=== PATIENT | male | born 1970 | race American Indian/Alaskan Native ===

== ENCOUNTER 2018-05-06 11:02 | Emergency (ER) | payer OTHER ==
[2018-05-06 11:17] VITALS: BP 181/88
[2018-05-06] MEDS ORDERED: BABY ASPIRIN PO ONE (11:17)
--- NOTE | 2018-05-06 11:26 | Emergency Department Report ---
ED Chest Pain HPI - General Chief Complaint: Chest Pain Stated Complaint: CHEST PAIN Time Seen by Provider: 05/06/18 11:14 Source: EMS Mode of arrival: Ambulatory Limitations: No Limitations - History of Present Illness Initial Comments: Mr. Carter is a 48 yo male with hx of schizophrenia who presents with chest pain sudden onset while at right. Pain located at the mid axillary region. Sharp moderately severe, no radiation. No dyspnea. +dry cough. NO injury but the pain occurred at the job. He shovels loads at a recycling plant. NO family hx of heart dz. In 2010, he was treated for chest pain and irregular heart beat at [facility] [place] after using cocaine. +tobacco use, no use of recreational drugs for the past several years Medications: Kailey Shen MD Complaint: chest pain -: Sudden, minutes(s) (30-45 minutes), This afternoon Onset: during exertion Pain Radiation: none Severity scale (0 -10): 8 Quality: aching, sharp Consistency: constant Improves With: nothing - Related Data Previous Rx's Medication Instructions Recorded Last Taken Type Doxycycline Hyclate [Vibramycin] 100 mg PO BID 7 Days #14 capsule 05/06/18 Unknown Rx predniSONE [Prednisone] 50 mg PO DAILY 5 Days #5 tablet 05/06/18 Unknown Rx Allergies Allergy/AdvReac Type Severity Reaction Status Date / Time No Known Allergies Allergy Unverified 05/06/18 11:17 Heart Score - HEART Score History: Slightly suspicious EKG: Normal Age: 45-65 Risk factors: No known risk factors Troponin: < normal limit HEART Score: 1 ED Review of Systems ROS: Stated complaint: CHEST PAIN Other details as noted in HPI Comment: All other systems reviewed and negative Constitutional: denies: fever, malaise ENT: denies: ear pain Respiratory: denies: cough Cardiovascular: chest pain ED Past Medical Hx - Past Medical History Previous Medical History?: Yes Hx CVA: No Hx Heart Attack/AMI: Yes (2010) Hx Congestive Heart Failure: No Hx Diabetes: No Hx Deep Vein Thrombosis: No Hx Pulmonary Embolism: No Hx GERD: Yes Hx Liver Disease: No Hx Renal Disease: No Hx of Cancer: No Hx Sickle Cell Disease: No Hx Arthritis: No Hx Headaches / Migraines: No Hx Seizures: No Hx Kidney Stones: No Hx Psychiatric Treatment: Yes (schizopphrenia) Hx Asthma: No Hx COPD: No Hx Tuberculosis: No Hx Dementia: No Hx HIV: No - Surgical History Past Surgical History?: No Hx Coronary Stent: No Hx Open Heart Surgery: No Hx Pacemaker: No Hx Internal Defibrillator: No Hx Cholecystectomy: No Hx Appendectomy: No Hx Breast Surgery: No - Social History Smoking Status: Current Every Day Smoker Substance Use Type: None - Medications Home Medications: Home Medications Medication Instructions Recorded Confirmed Last Taken Type Doxycycline Hyclate [Vibramycin] 100 mg PO BID 7 Days #14 capsule 05/06/18 Unknown Rx predniSONE [Prednisone] 50 mg PO DAILY 5 Days #5 tablet 05/06/18 Unknown Rx ED Physical Exam - General Limitations: No Limitations General appearance: alert, in no apparent distress - Head Head exam: Present: atraumatic, normocephalic - Eye Eye exam: Present: normal appearance - ENT ENT exam: Present: mucous membranes moist - Neck Neck exam: Present: normal inspection, full ROM - Respiratory Respiratory exam: Present: normal lung sounds bilaterally, chest wall tenderness. Absent: respiratory distress, wheezes, rales, rhonchi - Cardiovascular Cardiovascular Exam: Present: regular rate, normal rhythm, normal heart sounds. Absent: systolic murmur, diastolic murmur, rubs, gallop - GI/Abdominal GI/Abdominal exam: Present: soft, normal bowel sounds. Absent: distended, tenderness, guarding, rebound - Rectal Rectal exam: Present: deferred - Extremities Exam Extremities exam: Present: normal inspection - Back Exam Back exam: Present: normal inspection - Neurological Exam Neurological exam: Present: alert, oriented X3 - Psychiatric Psychiatric exam: Present: normal affect, normal mood - Skin Skin exam: Present: warm, dry, intact, normal color. Absent: rash ED Course Vital Signs 05/06/18 11:11 Temperature 98.6 F Pulse Rate 62 Respiratory 11 L Rate Blood Pressure 181/88 Blood Pressure 181/88 [Right] O2 Sat by Pulse 99 Oximetry ED Medical Decision Making - Lab Data Result diagrams: 05/06/18 11:50 05/06/18 11:50 Laboratory Results - last 24 hr 05/06/18 05/06/18 05/06/18 11:50 11:50 13:05 WBC 12.0 H RBC 4.91 Hgb 14.3 Hct 42.3 MCV 86 MCH 29 MCHC 34 RDW 13.7 Plt Count 264 Lymph % (Auto) 24.6 Dyer % (Auto) 7.6 H Eos % (Auto) 0.6 Baso % (Auto) 0.8 Lymph # 2.9 Dyer # 0.9 H Eos # 0.1 Baso # 0.1 Seg Neutrophils % 66.4 Seg Neutrophils # 8.0 H Sodium 138 Potassium 4.1 Chloride 101.5 Carbon Dioxide 23 Anion Gap 18 BUN 11 Creatinine 0.9 Estimated GFR > 60 BUN/Creatinine Ratio 12 Glucose 94 Calcium 8.4 Troponin T < 0.010 < 0.010 - EKG Data 05/06/18 11:26 EKG obtained 1110 Normal sinus rhythm rate 60 beats a minute normal axis normal intervals no ST elevation poor R-wave progression in the anterior leads and Q waves in V1 and V2 - Medical Decision Making Mrs. Sosa presents with sudden onset of chest pain while working. He has persistent chest pain even at rest. Pain is highly atypical for acute coronary syndrome. PERC negative for PE. Normal VS including HR 59 bpm, BP 121/82. Labs notable for elevated white count 12,000, serial troponin assays negative 2. Chest x-ray without acute process. Suspect acute bronchitis. Due to tobacco use, antibotics are indicated. Prescribed doxycycline and prednisone. Unfortunately Mr. Carter was anxious to leave AGAINST MEDICAL ADVICE prior to appropriate discharge. He stated that he had "a lot going on.". He had decision-making capacity. He was appropriate and stable for discharge. Critical care attestation.: If time is entered above; I have spent that time in minutes in the direct care of this critically ill patient, excluding procedure time. ED Disposition Clinical Impression: Chest pain, Acute bronchitis Disposition: DC-01 TO HOME OR SELFCARE Is pt being admited?: No Does the pt Need Aspirin: No Condition: Stable Instructions: Chest Pain (ED), Acute Bronchitis (ED) Prescriptions: predniSONE [Prednisone] 50 mg PO DAILY 5 Days #5 tablet Doxycycline Hyclate [Vibramycin] 100 mg PO BID 7 Days #14 capsule Referrals: NIC BELL MD [Primary Care Provider] - 3-5 Days Forms: Work/School Release Form(ED)
--- NOTE | 2018-05-06 11:33 | XRay Report ---
AP CHEST: HISTORY: chest pain AP view of the chest demonstrates a normal mediastinal and cardiac contour with clear lungs and normal bony and soft tissue structures. IMPRESSION: Unremarkable AP chest.
[2018-05-06 12:09] LABS: Basophils # (Auto) 0.1 K/mm3 (0.0-0.1); Basophils % (Auto) 0.8 % (0.0-1.8); Eosinophils # (Auto) 0.1 K/mm3 (0.0-0.4); Eosinophils % (Auto) 0.6 % (0.0-4.3); Hematocrit 42.3 % (35.5-45.6); Hemoglobin 14.3 gm/dl (11.8-15.2); Lymphocytes # (Auto) 2.9 K/mm3 (1.2-5.4); Lymphocytes % (Auto) 24.6 % (13.4-35.0); Mean Corpuscular HGB Conc 34 % (32-34); Mean Corpuscular Volume 86 fl (84-94); Monocytes # (Auto) 0.9 K/mm3 (0.0-0.8); Monocytes % (Auto) 7.6 % (0.0-7.3); Platelet Count 264 K/mm3 (140-440); Red Blood Count 4.91 M/mm3 (3.65-5.03); Red Cell Distribution Width 13.7 % (13.2-15.2)
[2018-05-06 12:22] LABS: BUN/Creatinine Ratio 12; Blood Urea Nitrogen 11 mg/dL (9-20); Calcium 8.4 mg/dL (8.4-10.2); Hemolysis Index 9
== END 2018-05-06 14:42 | disposition home or self-care (01) ==
LOC: ED 11:02
DX: J20.9 Acute bronchitis, unspecified (principal); I25.2 Old myocardial infarction; K21.9 Gastro-esophageal reflux disease without esophagitis; F20.9 Schizophrenia, unspecified; F17.200 Nicotine dependence, unspecified, uncomplicated
CPT/HCPCS: 36415; 71045; 80048; 84484; 85025; 93005; 93010